=== PATIENT | female | born 1980 | race Caucasian/White ===

== ENCOUNTER 2022-08-18 03:49 | Emergency (ER) | payer BC, SELFPAY ==
[2022-08-18 03:55] VITALS: BP 137/85; PULSE 98; RESP 16; TEMP 37.1; O2SAT 99; BMI 26.6
--- NOTE | 2022-08-18 04:03 | ED.EPISTAXIS ---
History of Present Illness General Chief Complaint: Nose Injury/Pain Stated Complaint: might of dislocated her nose. Time Seen by Provider: 08/18/22 04:03 History of Present Illness HPI Narrative: Pt is a 42 year old woman who was bumped in the nose while sleeping. Pt had bleeding from both nostrils initially. Bleeding has now stopped. Pt is concerned that she has dislocated her nose. Pt is able to breath and does have mild swelling across the bridge of the nose. No pain in the zygomatic arch. No other injuries. Related Data Home Medications Medication Instructions Recorded Confirmed No Known Home Medications 08/18/22 08/18/22 Allergies Allergy/AdvReac Type Severity Reaction Status Date / Time No Known Drug Allergies Allergy Verified 08/18/22 03:57 Review of Systems Status of ROS: Reports: 10 or more systems reviewed and unremarkable except as noted in History and below Exam Narrative: Exam Narrative: EXAM GENERAL: Patient appears comfortable and well. Mild swelling across the bidge of the nose with no echymosis. EYES: No scleral icterus. THYROID: no thyroid nodules or thyromegaly. LYMPH: No supraclavicular or cervical lymphadenopathy. SKIN: Visible skin seen during exam normal or with benign process only. EXT: No dependent lower extremity pedal edema. HEART: Regular rate and rhythm with no murmurs, rubs, or gallops. LUNGS: Clear to auscultation bilaterally with no crackles or wheezes. ABD: Soft, non tender, non distended. PSYCH: Good eye contact, speech is not pressured. Const: Vital Signs, click to edit/add: Vital Signs - 24 hr 08/18/22 03:55 Temperature 98.7 F Pulse Rate [Left P ulse Oximeter] 98 Respiratory Rate 16 Blood Pressure [Ri ght Upper Arm] 137/85 Pulse Oximetry 99 Oxygen Delivery Me thod Room Air Course Course Hospital Course: Pt seen and examined. Vital Signs Vital signs: Initial Vital Signs Temperature 98.7 F 08/18/22 03:55 Temperature Source Temporal Artery Scan 08/18/22 03:55 Pulse Rate 98 08/18/22 03:55 Respiratory Rate 16 08/18/22 03:55 Blood Pressure 137/85 08/18/22 03:55 Blood Pressure Mean 102 08/18/22 03:55 Blood Pressure Position Sitting 08/18/22 03:55 Pulse Oximetry 99 08/18/22 03:55 Oxygen Delivery Method 08/18/22 03:55 Vital Signs Temperature 98.7 F 08/18/22 03:55 Pulse Rate 98 08/18/22 03:55 Respiratory Rate 16 08/18/22 03:55 Blood Pressure 137/85 08/18/22 03:55 Pulse Oximetry 99 08/18/22 03:55 Oxygen Delivery Method 08/18/22 03:55 Temperature 98.7 F 08/18/22 03:55 Pulse Rate 98 08/18/22 03:55 Respiratory Rate 16 08/18/22 03:55 Blood Pressure 137/85 08/18/22 03:55 Pulse Oximetry 99 08/18/22 03:55 Oxygen Delivery Method 08/18/22 03:55 MDM - Epistaxis MDM Narrative Medical decision making narrative: Pt presents after being bumped in her nose while she was sleeping. Pt has minimal swelling. No further bleeding. No other facial abnormalities. Pt breathing well. I do not see a reason for an x ray as swelling is minimal. Pt offered reasurance and asked to ice and rotate tylenol and motrin with PCP/ENT follow up. Differential Diagnosis Differential diagnosis: Likely nasal bone fracture, anterior epistaxis and posterior epistaxis Discharge Plan Discharge Clinical Impression: Contusion Patient Disposition: Home, Self-Care Condition: Stable Instructions: Contusion in Adults (ED) Additional Instructions: Ice Tyelnol Motrin Follow up with ENT if symptoms do not improve. Activity Level: No Restrictions Discharge Diet: Regular Prescriptions: No Action No Known Home Medications Stand Alone Forms: [employer] Info Instructions
== END 2022-08-18 04:33 | disposition home or self-care (01) ==
LOC: ED 04:25
PROVIDERS: Emergency Provider Internal Medicine
DX: S00.33XA Contusion of nose, initial encounter (principal); W22.8XXA Striking against or struck by other objects, initial encounter
CPT/HCPCS: 99282; 99283